=== PATIENT | male | born 1945 | race Caucasian/White ===

== ENCOUNTER 2018-03-01 01:26 | Emergency (ER) | payer SELFPAY ==
[~2018-03-01] VITALS: Ht 185.4 cm; Wt 65.0 kg
[2018-03-01 01:29] VITALS: BP 142/84
[2018-03-01] MEDS ORDERED: DIPHENHYDRAMINE 25 MG CAPSULE ONE (01:53)
[2018-03-01] MEDS ORDERED: DIPHENHYDRAMINE 25 MG CAPSULE PO ONE (02:00)
== END 2018-03-01 03:01 | disposition home or self-care (01) ==
LOC: ED 01:55
DX: L24.81 Irritant contact dermatitis due to metals (principal); B86 Scabies
CPT/HCPCS: 99283; Q0163